=== PATIENT | female | born 1985 | race Two or more races ===

== ENCOUNTER → 2024-08-31 | Outpatient (CLI) | payer MEDICAID, SELFPAY ==
--- NOTE | 2024-08-31 07:30 | XR_ITS ---
Examination: CT maxillofacial, without intravenous contrast. 2-D sagittal reconstructions. 3-D reconstructions. Date and time of exam:August 31, 2024 0738 hours INDICATIONS: Sinus pressure and pain 8 months CTDI: vol (mGy):32.6 DLP: (mGycm):46 Technique: Multiple axial images of maxillofacial region, 3.0 mm slice thickness. 2-D sagittal and coronal reconstructions. 3-D reconstructions. Low dose protocols were performed. One or more of the following dose reduction techniques were used; automated exposure control, adjustment of the mA and/or KV according to patient size, use of iterative reconstruction technique. Findings: Underdeveloped frontal air cells Mild mucosal thickening ethmoid air cells partial occlusion right ostiomeatal complex Moderate hypertrophy right inferior nasal turbinate Trace mucosal thickening maxillary antra No nasopharyngeal mass Negative for otitis media Negative for mastoiditis The optic globes exhibit symmetry IMPRESSION: Mild mucosal thickening ethmoid air cells with partial occlusion right ostiomeatal complex Moderate hypertrophy right inferior nasal turbinate Trace mucosal thickening maxillary antra.
== END | disposition home or self-care (01) ==
LOC: CCTX 07:21
PROVIDERS: Referring Provider Internal Medicine; Visit Provider Internal Medicine
DX: J32.8 Other chronic sinusitis (principal); J34.3 Hypertrophy of nasal turbinates
CPT/HCPCS: 70486

== ENCOUNTER → 2024-09-04 | Outpatient (CLI) | payer MEDICAID, SELFPAY ==
--- NOTE | 2024-09-04 16:49 | XR_ITS ---
Examination: Cervical spine 4 views TECHNIQUE: AP lateral swimmer's lateral AP odontoid 4 views Exam date and time: September 04, 2024 1657 hours INDICATIONS: Chronic neck pain more severe beginning 3 weeks ago. FINDINGS: Adequate alignment cervical vertebral bodies No cervical fracture Intact odontoid Early degenerative disc disease C5-C6, C6-C7 IMPRESSION: Early degenerative disc disease C5-C6, C6-C7
== END | disposition home or self-care (01) ==
PROVIDERS: PCP Internal Medicine; Referring Provider Nurse Practitioner Family; Visit Provider Nurse Practitioner Family
DX: M50.322 Other cervical disc degeneration at C5-C6 level (principal)
CPT/HCPCS: 72040

== ENCOUNTER → 2024-11-24 | Outpatient (CLI) | payer MEDICAID, SELFPAY ==
--- NOTE | 2024-11-24 15:30 | XR_ITS ---
Examination: Diagnostic digital mammography, bilateral Computer aided detection 3-D breast Tomosynthesis, bilateral Date and time of exam: 11/24/2024, 3:31 PM Comparisons: June 2022 through October 2023 Indications:Bilateral palpable abnormalities. Technique: Nonmagnified MLO, CC views of the breasts to been obtained, reconstructed from 3-D Tomosynthesis images. R2 computer aided detection program utilized for evaluation of suspicious masses and/or abnormal calcifications. 3-D Tomosynthesis images obtained. Findings: The breasts are heterogeneously dense, which may obscure small masses. No evidence of abnormal masses or suspicious calcifications. Stable left postbiopsy marker clip Impression: No mammographic abnormalities. Further evaluation of palpable abnormalities with ultrasound is recommended. BI-RADS category 0: Incomplete assessment; need additional imaging evaluation
== END | disposition home or self-care (01) ==
LOC: CDIM 15:14
PROVIDERS: Referring Provider Internal Medicine; Visit Provider Internal Medicine
DX: R92.8 Other abnormal and inconclusive findings on diagnostic imaging of breast (principal)
CPT/HCPCS: 77062; 77066; G0279

== ENCOUNTER → 2025-02-06 | Outpatient (CLI) | payer MEDICAID, SELFPAY ==
--- NOTE | 2025-02-06 15:00 | XR_ITS ---
Examination: Breast ultrasound complete, bilateral Date and time of exam: February 06, 2025 1519 hours INDICATIONS: Bilateral burning breast pain 3 months Technique: Real-time grayscale ultrasonographic imaging bilateral breasts, including all 4 quadrants as well as nipple retroareolar and axillary regions. Findings: Sonographic images right breast 3:00 cyst 6 x 7 mm Sonographic images left breast 2:00 cyst 5 x 5 mm No solid nodules IMPRESSION: BI-RADS Category 2: Benign findings
== END | disposition home or self-care (01) ==
PROVIDERS: PCP Internal Medicine; Referring Provider Internal Medicine; Visit Provider Internal Medicine
DX: N60.01 Solitary cyst of right breast (principal); N60.02 Solitary cyst of left breast
CPT/HCPCS: 76641

== ENCOUNTER 2025-03-06 11:35 | Day surgery (SDC) | payer MEDICAID, SELFPAY ==
[2025-03-05 10:59] LABS: HCG Qualitative,Urine Negative
[2025-03-06] VITALS (9 sets, daily range): BP systolic 130–150; BP diastolic 72–91; PULSE 71–98; RESP 15–21; TEMP 36.4–36.6; O2SAT 94–100; BMI 33.8
[2025-03-06] MEDS: RINGERS LACTATED 1000 ML 1,000 ML 125 ML IV (13:04)
[2025-03-06] MEDS: MIDAZOLAM INJ 1 MG/ML VIAL 2 ML (ASD USE ONLY) 2 MG IVP (13:10)
[2025-03-06] MEDS: fentaNYL CIT INJ 50 mCg/ML AMP 2ML (ASD USE ONLY) IVP (13:10)
== END 2025-03-06 14:00 | disposition home or self-care (01) ==
PROVIDERS: PCP Internal Medicine; Referring Provider Internal Medicine Gastroenterology; Visit Provider Internal Medicine Gastroenterology
PROC: (CPT 43239; principal; 2025-03-06 12:45)
DX: K29.80 Duodenitis without bleeding (principal); K31.89 Other diseases of stomach and duodenum; K44.9 Diaphragmatic hernia without obstruction or gangrene; I10 Essential (primary) hypertension; K29.50 Unspecified chronic gastritis without bleeding
CPT/HCPCS: 43239; 81025; J1200; J2250; J3010; J7120

== ENCOUNTER → 2025-05-18 | Outpatient (CLI) | payer MEDICAID, SELFPAY ==
--- NOTE | 2025-05-18 17:00 | XR_ITS ---
Examination: CT left lower extremity, without contrast. 2-D sagittal reconstructions. 2-D coronal reconstructions. 3-D reconstructions. Date and time of exam:May 18, 2025, 1650 hrs. Indications: Left femur pain 2 years CTDI: vol (mGy):19.1 DLP: (mGycm):1122 Technique: Multiple 1.25 mm axial sections of the left lower extremity without intravenous contrast have been obtained. 2-D sagittal and coronal reconstructions have been obtained. 3-D reconstructions have been obtained. Low dose protocols were performed. One or more of the following dose reduction techniques were used; automated exposure control, adjustment of the mA and/or KV according to patient size, use of iterative reconstruction technique. Findings: Mild narrowing left hip joint No left hip fracture bone contusion or avascular necrosis Shaft of the femur intact and no cortical bone destruction, no endosteal scalloping No soft tissue edema or abscess Negative for myositis on this noncontrast study No knee effusion Minimal prepatellar skin thickening Mild to moderate narrowing medial and patellofemoral joints Impression: Mild narrowing medial joint space, mild to moderate narrowing medial patellofemoral joints left knee No fractures Negative for osteomyelitis Negative for cellulitis, no soft tissue abscess noted
== END | disposition home or self-care (01) ==
PROVIDERS: PCP Internal Medicine; Referring Provider Nurse Practitioner Family; Visit Provider Nurse Practitioner Family
DX: M25.862 Other specified joint disorders, left knee (principal)
CPT/HCPCS: 73700